=== PATIENT | female | born 1970 | race Caucasian/White ===

== ENCOUNTER 2024-05-22 14:25 | Emergency (ER) | payer BC ==
[~2024-05-22] VITALS: Ht 160 cm; Wt 93.4 kg
== END 2024-05-22 17:04 | disposition home or self-care (01) ==
LOC: ER 14:25
DX: S60.221A Contusion of right hand, initial encounter (principal); W22.8XXA Striking against or struck by other objects, initial encounter
CPT/HCPCS: 73130; 99284-25